=== PATIENT | female | born 1930 | race Caucasian/White ===

== ENCOUNTER 2019-04-23 10:59 | Outpatient (CLI) | payer MEDICARE | END 2019-04-23 11:00 | disposition home or self-care (01) | LOC: MADLABBHPM 10:59 | PROVIDERS: ATTEND Family Medicine | DX: R50.9 Fever, unspecified (principal) | CPT/HCPCS: 87804 ==

== ENCOUNTER 2019-05-28 19:39 | Inpatient (IN) | payer MEDICARE ==
[2019-05-28 20:45] LABS: #Basophils 0.1 thou/uL (0.0-0.2); #Eosinphils 0.5 thou/uL (0.0-0.7); #Lymphocytes 1.7 thou/uL (1.20-3.40); #Monocytes 0.6 thou/uL (0.11-0.59); #Neutrophils 8.9 thou/uL (1.40-6.50); %Eosinophils 4.3 % (0.0-10.0); %Monocytes 5.4 % (0.0-10.0); %Neutrophils 75.3 % (42.0-75.0); Hemoglobin 13.6 g/dL (12.0-16.0); Mean Corpuscular Hemoglobin 28.3 pg (27.0-31.0); Mean Corpuscular Volume 94.5 fL (78.0-98.0); Mean Platelet Volume 11.1 fL (7.4-10.4); Platelet Count 212 thou/uL (130-400); RBC Distribution Width 12.1 % (11.5-14.5); Red Blood Cell (RBC) Count 4.79 mill/uL (4.20-5.40); White Blood Cell (WBC) Count 11.9 thou/uL (4.8-10.8)
--- NOTE | 2019-05-28 20:48 | RAD ---
PORTABLE CHEST: 05/28/19 HISTORY: Syncope. COMPARISON: 01/19/11 exam. Heart size is within normal limits for portable technique. There are atherosclerotic changes of the aorta. Chronic lung changes are noted. No focal infiltrative process or signs of failure. Postoperati ve changes of the left shoulder are present. IMPRESSION: Chronic lung change. POS: [facility]
[2019-05-28 20:52] LABS: Bilirubin Small (Negative); Blood, Urine Small (Negative); Clarity Clear (Clear); Glucose, Urine (Dipstick) Negative (Negative); Leukocyte Large (Negative); Nitrite Negative (Negative); Protein, Urine (Dipstick) 30 mg/dL (Neg-Trace); Urobilinogen 0.2 mg/dL (Less than 2)
[2019-05-28 20:55] LABS: ALT (SGPT) 12 U/L (8-55); AST (SGOT) 14 U/L (5-34); Albumin 3.3 g/dL (3.4-4.8); Alkaline Phosphatase 94 U/L (40-110); Anion Gap 14 mmol/L (10-20); BUN (Urea Nitrogen) 30 mg/dL (9.8-20.1); Bilirubin, Total 0.5 mg/dL (0.2-1.2); CK (CPK) 10 U/L (29-168); Calc. Creatinine Clearance 0 mL/min (70-130); Calcium 9.5 mg/dL (7.8-10.44); Carbon Dioxide 27 mmol/L (23-31); Chloride 104 mmol/L (98-107); Estimated GFR-MDRD 72; Glucose 105 mg/dL (83-110); Lipase 27 U/L (8-78); Potassium 3.9 mmol/L (3.5-5.1); Protein, Total 6.3 g/dL (6.0-8.3); Sodium 141 mmol/L (136-145)
[2019-05-28] MEDS ORDERED: Sodium Chloride 0.9% 100 ML ONE (20:55)
[2019-05-28] MEDS ORDERED: cefTRIAXone\\ROCEPHIN 2 GM VIAL ONE (20:55)
[2019-05-28 21:00] LABS: Bacteria/HPF 1+ HPF (None Seen); Mucous/LPF 2+ LPF (<2+); RBC/HPF 0-3 HPF (0-3); WBC/HPF Greater than 50 HPF (0-3)
[2019-05-28] MEDS ORDERED: Sodium Chloride 0.9% 1,000 ML ONE (21:59)
[2019-05-28] MEDS ORDERED: Ondansetron PF 4 MG/2 ML Vial SLOW IVP PRN (23:26)
[2019-05-28] MEDS: Sodium Chloride 0.9% 1,000 ML IV SCH (23:39)
[2019-05-28] MEDS ORDERED: Donepezil HCl 10 MG TAB PO SCH (23:45)
[2019-05-28] MEDS ORDERED: Mirtazapine 15 MG TAB PO SCH (23:45)
[2019-05-28] MEDS ORDERED: Metoprolol Tartrate 25 MG TAB PO SCH (23:45)
[2019-05-28] MEDS ORDERED: Nitrofurantoin Monohyd/M-Cryst 100 MG CAP PO SCH (23:59)
[2019-05-29] MEDS: Nitrofurantoin Monohyd/M-Cryst 100 MG CAP PO SCH ×2 (08:16→20:58)
[2019-05-29] MEDS: Multivitamin W/ Minerals 1 TAB PO SCH (08:17)
[2019-05-29] MEDS: Aspirin Chewable 81 MG TAB PO SCH (08:17)
[2019-05-29] MEDS: Polyethylene Glycol 3350 17 GM Packet PO SCH (08:17)
[2019-05-29] MEDS ORDERED: Losartan 25 MG TAB PO SCH (09:00)
[2019-05-29] MEDS ORDERED: Metoprolol Tartrate 25 MG TAB PO SCH (09:00)
[2019-05-29] MEDS: Sodium Chloride 0.9% 1,000 ML IV SCH ×2 (12:30→23:26)
[2019-05-29 14:49] VITALS: BMI 16.2
[2019-05-29] MEDS ORDERED: Acetaminophen 325 MG TAB PO PRN (16:44)
[2019-05-29] MEDS: Linezolid 600 MG in Premix Bag 1 BAG IVPB SCH (17:35)
[2019-05-29] MEDS: Acetaminophen 500 MG TAB PO PRN (20:56)
[2019-05-29] MEDS: Famotidine 20 MG TAB PO SCH (20:57)
[2019-05-29] MEDS: Mirtazapine 15 MG TAB PO SCH (20:57)
[2019-05-29] MEDS: Donepezil HCl 10 MG TAB PO SCH (20:58)
--- NOTE | 2019-05-29 22:06 | HP ---
PRIMARY CARE PHYSICIAN: Rohini Aaron MD REASON FOR ADMISSION/CHIEF COMPLAINT: Generalized weakness, dehydration, and failed outpatient UTI treatment. HISTORY OF PRESENT ILLNESS: Ms. Mily Ennis is an 89-year-old female with dementia, who was admitted to [facility] in September of 2018. The patient has had reoccurring UTI for the last month and a half. She had been treated as an outpatient and is still currently on oral Macrobid twice a day due to a recent UTI that grew vancomycin resistant enterococcus on May 20, 2019. The patient's condition had progressively worsened. Per [facility] nurses, the patient had become weak, dehydrated with decreased oral intake and due to this, the patient was sent to the emergency room. In the emergency room, she was noted to be weak and her vitals were stable. The patient was ill appearing, but not septic. She was mildly dehydrated, urinalysis still shows infection and due to this, the decision was made to admit the patient for IV hydration and IV antibiotic. Upon evaluation of the patient, she complains of weakness. She denies any pain. She states she wants to feel better. No worsening of dementia currently. No nausea or vomiting. No diarrhea or any upper respiratory infection. The patient denies any chest pain, palpitations, or shortness of breath. In the emergency room, the patient was given IV Rocephin and continued on Macrobid. PAST MEDICAL HISTORY: Dementia, COPD, congestive heart failure, anxiety, emphysema, chronic pain, and failure to thrive in adult. PAST SURGICAL HISTORY: Appendectomy; breast lumpectomy, bilateral; cholecystectomy; ORIF, right wrist fracture; IR guided extended indwelling catheter in 2007; IR vertebroplasty, thoracic in 2017. FAMILY HISTORY: Noncontributory. ALLERGIES: PENICILLIN. MEDICATIONS: 1. Donepezil 5 mg at bedtime. 2. Multivitamin one tab daily. 3. Mirtazapine 7.5 at bedtime. 4. Macrobid b.i.d. to be completed on May 30. 5. MiraLAX once a day. 6. Metoprolol 12.5 b.i.d. 7. Losartan 25 once a day. 8. Aspirin 81 mg daily. 9. Tylenol 500 q.8 p.r.n. pain. 10. DuoNeb q.6 p.r.n. wheezing and shortness of breath. CODE STATUS: The patient is a full code. REVIEW OF SYSTEMS: CONSTITUTIONAL: The patient complains of generalized weakness, fatigue. EYES: Denies any blurry vision, loss of vision. ENT: Denies ear pain, sore throat, runny nose. CARDIOVASCULAR: Denies chest pain, shortness of breath, palpitations. RESPIRATORY: Denies cough or nasal congestion. GASTROINTESTINAL: Denies nausea, vomiting, diarrhea, constipation. MUSCULOSKELETAL: Complains of trouble walking. SKIN: Denies any rashes, sores, and ulcers. NEUROLOGICAL: Complains of some confusion. PHYSICAL EXAMINATION: VITAL SIGNS: Temperature 97.7, pulse 81, respirations 16, O2 saturation 98% on 2 L nasal cannula, and blood pressure 154/78. GENERAL: The patient is a pleasant female, lying in bed, chronically ill appearing, but nontoxic. The patient is alert, awake, and oriented to self. HEENT: Normocephalic and atraumatic. Oral, mucous membrane mildly dry. NECK: Supple. No JVD. No lymphadenopathy. CARDIOVASCULAR: S1 and S2. No murmurs. RESPIRATORY: Clear to auscultation bilaterally. ABDOMEN: Positive bowel sounds. Soft, nontender, nondistended. EXTREMITIES: No edema. SKIN: Bilateral lower extremity with some petechiae. NEUROLOGIC: The patient able to answer where she is at, in the hospital, but states she is in [place]. She is somewhat confused but does answer some questions. She is not able to answer appropriately. She is able to follow commands. No gross facial asymmetry. Neuro limited due to the patient's condition. ASSESSMENT: 1. Urinary tract infection with failed outpatient treatment. 2. Generalized weakness. 3. Mild dehydration. 4. Failure to thrive. 5. Gait instability. 6. Chronic obstructive pulmonary disease. 7. Hypertension. 8. Chronic congestive heart failure, ejection fraction not available. PLAN: The patient is an 89-year-old female, who is being admitted to the medical floor for urinary tract infection with failed outpatient treatment, dehydration, and generalized weakness. We will place the patient on normal saline at 75 mL/h. We will continue nitrofurantoin to complete dose on the . We will get urine culture results from [facility] and also await our urine culture here. We will place the patient on IV antibiotic in the morning based on the urine culture results. We will monitor the patient closely for any hemodynamic instability. We will repeat CBC and BMP on the . We will assist in feeding the patient as much as possible. We will add health shakes t.i.d. to diet to help with nutrition. We will consult Nutrition Services. As the patient progresses and UTI resolves, we will consult Physical Therapy to help with gait strengthening, balance and strengthening prior to discharge back to [facility]. Job ID: [id number] [facility]
[2019-05-30] MEDS: Sodium Chloride 0.9% 1,000 ML IV SCH ×3 (01:19→13:47)
[2019-05-30] MEDS: Linezolid 600 MG in Premix Bag 1 BAG IVPB SCH ×2 (04:46→17:19)
[2019-05-30 05:58] LABS: Anion Gap 13 mmol/L (10-20); BUN (Urea Nitrogen) 18 mg/dL (9.8-20.1); Calc. Creatinine Clearance 39 mL/min (70-130); Calcium 8.7 mg/dL (7.8-10.44); Carbon Dioxide 20 mmol/L (23-31); Chloride 109 mmol/L (98-107); Estimated GFR-MDRD 78; Glucose 99 mg/dL (83-110); Potassium 3.8 mmol/L (3.5-5.1); Sodium 138 mmol/L (136-145)
[2019-05-30 06:18] LABS: #Basophils 0.1 thou/uL (0.0-0.2); #Eosinphils 0.7 thou/uL (0.0-0.7); #Lymphocytes 0.7 thou/uL (1.20-3.40); #Monocytes 0.7 thou/uL (0.11-0.59); %Basophils 0.7 % (0.0-1.0); %Eosinophils 4.5 % (0.0-10.0); %Lymphocytes 4.5 % (21.0-51.0); %Monocytes 4.9 % (0.0-10.0); %Neutrophils 85.4 % (42.0-75.0); Mean Corpuscular HGB CONC 30.5 g/dL (32.0-36.0); Mean Corpuscular Volume 95.1 fL (78.0-98.0); Mean Platelet Volume 10.7 fL (7.4-10.4); Platelet Count 199 thou/uL (130-400); RBC Distribution Width 12.1 % (11.5-14.5); Red Blood Cell (RBC) Count 4.47 mill/uL (4.20-5.40); White Blood Cell (WBC) Count 15.2 thou/uL (4.8-10.8)
[2019-05-30] MEDS: Nitrofurantoin Monohyd/M-Cryst 100 MG CAP PO SCH ×2 (08:19→20:50)
[2019-05-30] MEDS: Aspirin Chewable 81 MG TAB PO SCH (08:19)
[2019-05-30] MEDS: Multivitamin W/ Minerals 1 TAB PO SCH (08:19)
[2019-05-30] MEDS: Polyethylene Glycol 3350 17 GM Packet PO SCH (08:19)
[2019-05-30] MEDS: Famotidine 20 MG TAB PO SCH ×2 (08:19→20:49)
[2019-05-30] MEDS ORDERED: Sodium Chloride 0.9% 1,000 ML BAG ONE (12:37)
[2019-05-30] MEDS: Donepezil HCl 10 MG TAB PO SCH (20:49)
[2019-05-30] MEDS: Mirtazapine 15 MG TAB PO SCH (20:50)
[2019-05-31] MEDS: Acetaminophen 500 MG TAB PO PRN (01:32)
[2019-05-31] MEDS: Sodium Chloride 0.9% 1,000 ML IV SCH (02:39)
[2019-05-31] MEDS: Linezolid 600 MG in Premix Bag 1 BAG IVPB SCH (04:30)
[2019-05-31] MEDS: Aspirin Chewable 81 MG TAB PO SCH (08:38)
[2019-05-31] MEDS: Polyethylene Glycol 3350 17 GM Packet PO SCH (08:38)
[2019-05-31] MEDS: Multivitamin W/ Minerals 1 TAB PO SCH (08:38)
[2019-05-31] MEDS: Famotidine 20 MG TAB PO SCH (08:38)
[2019-05-31 09:17] VITALS: BP 150/78; TEMP 96.6
--- NOTE | 2019-06-02 22:26 | PQF ---
Raymon MilyROHINI Varela [id number] CLINICAL DOCUMENTATION CLARIFICATION FORM: POST DISCHARGE Addendum to original discharge summary date: ____ Late entry note date: __ Date:06/02/2019 ATTN:ROHINI SORENSON Please exercise your independent, professional judgment in responding to the clarification form. Clinical indicators are provided on the bottom of this form for your review Please check appropriate box(s): [ ] Protein Calorie Malnutrition: [ ] Mild [ ] Moderate [ ] Severe [ ] Other Malnutrition (please specify) __ [ ] Underweight without malnutrition [x ] Cachexia [ ] Other diagnosis [ ] Unable to determine In addition, please specify: Present on Admission (POA): [ ] Yes [ ] No [ ] Unable to determine CLINICAL INDICATORS - SIGNS / SYMPTOMS / LABS Patient had become weak , dehydration with decreased oral intake -Documented in H&P on 05/28 by Rohini Sorenson MD Failure to thrive-Documented in H&P on 05/28 by Rohini Sorenson MD BMI-16.0-Documented in FNS Assessment Severe fat and muscle loss, Likely significant weight loss and inadequate energy intake , but unable to quantify-Documented in FNS Assessment Albumin-3.3-Documented in Laboratory RISK FACTORS Failure to thrive-Documented in H&P on 05/28 by Rohini Sorenson MD TREATMENT: We will assist in feeding the patient as much as possible. We will add health shakes t.i.d to diet to help with nutrition. We will consult Nutrition services --Documented in H&P on 05/28 by Rohini Sorenson MD General /Healthful diet supp comm beverage -Documented in FNS Assessment Continue regular NDD1-pureed , [place] thick liquids diet,Provide mighty shakes TID w/ meals -Documented in FNS Moderate Malnutrition (in acute illness) Energy Intake: <75% of estimated energy requirement for > 7 days Weight Loss: 1-2%/1 week; 5%/ 1 month; 7.5%/3 months Other: mild body fat loss; mild muscle mass loss; mild fluid accumulation; Severe Malnutrition (in acute illness) Energy Intake: < 50% of estimated energy requirement for > 5 days Weight Loss: >1-2%/1 week; >5%/1 month; >7.5%/3 months Other: moderate body fat loss; moderate muscle mass loss; moderate- severe fluid accumulation; 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 Moderate Malnutrition (in chronic illness) Energy Intake: <75% of estimated energy requirement for >1 month Weight Loss: 5%/1 month; 7.5%/3 months; 10%/6 months; 20%/1 year Other: mild body fat loss; mild muscle mass loss; mild fluid accumulation Severe Malnutrition (in chronic illness) Energy Intake: <75% of estimated energy requirement for >1 month Weight Loss: >5%/1 month; >7.5%/3 months; >10%/6 months; >20%/1 year Other: severe body fat loss; severe muscle mass loss; severe fluid accumulation ; 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 All Rights Reserved [email or web address]
== END 2019-05-31 11:12 | disposition swing bed (61) | DRG 690 ==
LOC: MADERS 19:39 → MADMS 21:25
PROVIDERS: ADMIT Family Medicine; ATTEND Family Medicine
DX: N39.0 Urinary tract infection, site not specified (principal); Z68.1 Body mass index [BMI] 19.9 or less, adult; R64 Cachexia; E86.0 Dehydration; R26.9 Unspecified abnormalities of gait and mobility; I11.0 Hypertensive heart disease with heart failure; I50.9 Heart failure, unspecified; F41.9 Anxiety disorder, unspecified; J43.9 Emphysema, unspecified; F03.90 Unspecified dementia, unspecified severity, without behavioral disturbance, psychotic disturbance, mood disturbance, and anxiety; Z90.49 Acquired absence of other specified parts of digestive tract; Z88.0 Allergy status to penicillin; Z98.890 Other specified postprocedural states
CPT/HCPCS: 36415; 51701; 71045; 80048; 80053; 81003; 81015; 82550; 83605; 83690; 84484; 85025; 87040; 87086; 93005; 96361; 96365; A4353; J0696; J2020; J3490; J7050

== ENCOUNTER 2019-05-31 07:59 | Inpatient (IN) | payer MEDICARE ==
[2019-05-31] MEDS ORDERED: Acetaminophen 325 MG TAB PO PRN (14:03)
[2019-05-31] MEDS ORDERED: Loperamide HCl 2 MG CAP PO PRN (14:03)
[2019-05-31] MEDS ORDERED: Ondansetron ODT 4 MG TAB PO PRN (14:03)
[2019-05-31] MEDS ORDERED: SODIUM CHLORIDE IV SCH (14:15)
[2019-05-31] MEDS ORDERED: LINEZOLID IV SCH (14:15)
[2019-05-31] MEDS ORDERED: [UNRECOGNIZED DRUG - OTHER] IV SCH (14:15)
[2019-05-31] MEDS: Linezolid 600 MG in Premix Bag 1 BAG IVPB SCH (17:08)
[2019-05-31] MEDS ORDERED: Sodium Chloride 0.9% 1,000 ML IV SCH (19:30)
[2019-05-31] MEDS: Ipratropium Bromide 2.5 ml Neb NEB SCH (20:12)
[2019-05-31] MEDS: Famotidine 20 MG TAB PO SCH (20:13)
[2019-05-31] MEDS: Donepezil HCl 10 MG TAB PO SCH (20:13)
[2019-05-31] MEDS: Mirtazapine 15 MG TAB PO SCH (20:14)
[2019-05-31] MEDS: Acetaminophen 500 MG TAB PO SCH (22:31)
[2019-06-01] MEDS: Ipratropium Bromide 2.5 ml Neb NEB SCH ×4 (01:10→20:01)
[2019-06-01] MEDS: Acetaminophen 500 MG TAB PO SCH ×3 (05:20→21:31)
[2019-06-01] MEDS: Linezolid 600 MG in Premix Bag 1 BAG IVPB SCH ×2 (05:20→16:55)
[2019-06-01 05:44] LABS: #Basophils 0.1 thou/uL (0.0-0.2); #Eosinphils 0.9 thou/uL (0.0-0.7); #Lymphocytes 1.4 thou/uL (1.20-3.40); #Monocytes 0.4 thou/uL (0.11-0.59); #Neutrophils 3.7 thou/uL (1.40-6.50); %Basophils 1.2 % (0.0-1.0); %Eosinophils 14.2 % (0.0-10.0); %Lymphocytes 20.8 % (21.0-51.0); %Monocytes 6.5 % (0.0-10.0); %Neutrophils 57.2 % (42.0-75.0); Hemoglobin 11.3 g/dL (12.0-16.0); Mean Corpuscular HGB CONC 30.8 g/dL (32.0-36.0); Mean Corpuscular Hemoglobin 28.9 pg (27.0-31.0); Mean Corpuscular Volume 93.9 fL (78.0-98.0); Mean Platelet Volume 10.7 fL (7.4-10.4); Platelet Count 215 thou/uL (130-400); Red Blood Cell (RBC) Count 3.91 mill/uL (4.20-5.40); White Blood Cell (WBC) Count 6.5 thou/uL (4.8-10.8)
[2019-06-01 05:54] LABS: Anion Gap 8 mmol/L (10-20); BUN (Urea Nitrogen) 12 mg/dL (9.8-20.1); Calc. Creatinine Clearance 43 mL/min (70-130); Calcium 8.2 mg/dL (7.8-10.44); Carbon Dioxide 26 mmol/L (23-31); Chloride 109 mmol/L (98-107); Estimated GFR-MDRD 86; Glucose 75 mg/dL (83-110); Potassium 3.4 mmol/L (3.5-5.1); Sodium 140 mmol/L (136-145)
[2019-06-01] MEDS: Multivitamin W/ Minerals 1 TAB PO SCH (09:30)
[2019-06-01] MEDS: Famotidine 20 MG TAB PO SCH ×2 (09:31→20:01)
[2019-06-01] MEDS: Aspirin 81 mg Enteric Coated Tablet PO SCH (09:31)
[2019-06-01] MEDS: Donepezil HCl 10 MG TAB PO SCH (20:01)
[2019-06-01] MEDS: Mirtazapine 15 MG TAB PO SCH (20:02)
[2019-06-02] MEDS: Ipratropium Bromide 2.5 ml Neb NEB SCH ×4 (00:48→18:17)
[2019-06-02] MEDS: Linezolid 600 MG in Premix Bag 1 BAG IVPB SCH ×2 (05:12→17:29)
[2019-06-02] MEDS: Acetaminophen 500 MG TAB PO SCH ×3 (05:12→22:02)
[2019-06-02] MEDS: Famotidine 20 MG TAB PO SCH ×2 (08:49→20:36)
[2019-06-02] MEDS: Aspirin 81 mg Enteric Coated Tablet PO SCH (08:49)
[2019-06-02] MEDS: Multivitamin W/ Minerals 1 TAB PO SCH (08:49)
[2019-06-02] MEDS: Donepezil HCl 10 MG TAB PO SCH (20:36)
[2019-06-02] MEDS: Mirtazapine 15 MG TAB PO SCH (20:36)
[2019-06-03] MEDS: Ipratropium Bromide 2.5 ml Neb NEB SCH ×4 (01:46→20:38)
[2019-06-03] MEDS: Acetaminophen 500 MG TAB PO SCH ×3 (05:20→22:25)
[2019-06-03] MEDS: Linezolid 600 MG in Premix Bag 1 BAG IVPB SCH (05:20)
[2019-06-03] MEDS: Famotidine 20 MG TAB PO SCH ×2 (08:11→20:35)
[2019-06-03] MEDS: Megestrol Acetate 400 MG/10 ML UDCUP PO SCH (08:11)
[2019-06-03] MEDS: Multivitamin W/ Minerals 1 TAB PO SCH (08:11)
[2019-06-03] MEDS: Aspirin 81 mg Enteric Coated Tablet PO SCH (08:11)
[2019-06-03] MEDS: Mirtazapine 15 MG TAB PO SCH (20:35)
[2019-06-03] MEDS: Donepezil HCl 10 MG TAB PO SCH (20:37)
[2019-06-04] MEDS: Ipratropium Bromide 2.5 ml Neb NEB SCH ×4 (02:18→19:53)
[2019-06-04] MEDS: Acetaminophen 500 MG TAB PO SCH ×3 (05:37→22:03)
[2019-06-04] MEDS: Famotidine 20 MG TAB PO SCH ×2 (08:22→20:10)
[2019-06-04] MEDS: Aspirin 81 mg Enteric Coated Tablet PO SCH (08:22)
[2019-06-04] MEDS: Megestrol Acetate 400 MG/10 ML UDCUP PO SCH (08:22)
[2019-06-04] MEDS: Multivitamin W/ Minerals 1 TAB PO SCH (08:23)
[2019-06-04] MEDS: Mirtazapine 15 MG TAB PO SCH (20:09)
[2019-06-04] MEDS: Donepezil HCl 10 MG TAB PO SCH (20:10)
[2019-06-05] MEDS: Ipratropium Bromide 2.5 ml Neb NEB SCH ×3 (01:38→12:48)
[2019-06-05] MEDS: Acetaminophen 500 MG TAB PO SCH ×3 (05:50→21:58)
[2019-06-05] MEDS: Multivitamin W/ Minerals 1 TAB PO SCH (09:02)
[2019-06-05] MEDS: Aspirin 81 mg Enteric Coated Tablet PO SCH (09:02)
[2019-06-05] MEDS: Famotidine 20 MG TAB PO SCH ×2 (09:02→21:48)
[2019-06-05] MEDS: Megestrol Acetate 400 MG/10 ML UDCUP PO SCH (09:02)
[2019-06-05 15:05] VITALS: BMI 16.5
[2019-06-05] MEDS: Mirtazapine 15 MG TAB PO SCH (21:48)
[2019-06-05] MEDS: Donepezil HCl 10 MG TAB PO SCH (21:48)
[2019-06-06] MEDS: Ipratropium Bromide 2.5 ml Neb NEB SCH ×5 (01:09→13:03)
[2019-06-06] MEDS: Acetaminophen 500 MG TAB PO SCH ×4 (06:04→21:28)
[2019-06-06] MEDS: Aspirin 81 mg Enteric Coated Tablet PO SCH (09:00)
[2019-06-06] MEDS: Megestrol Acetate 400 MG/10 ML UDCUP PO SCH (09:00)
[2019-06-06] MEDS: Famotidine 20 MG TAB PO SCH ×2 (09:00→21:24)
[2019-06-06] MEDS: Multivitamin W/ Minerals 1 TAB PO SCH (09:00)
[2019-06-06] MEDS ORDERED: Loperamide HCl 2 MG CAP PO PRN (15:24)
[2019-06-06] MEDS ORDERED: Loperamide HCl 2 MG CAP PO SCH (15:30)
[2019-06-06] MEDS: Donepezil HCl 10 MG TAB PO SCH (21:23)
[2019-06-06] MEDS: Mirtazapine 15 MG TAB PO SCH (21:24)
[2019-06-07] MEDS: Ipratropium Bromide 2.5 ml Neb NEB SCH ×4 (01:11→17:57)
[2019-06-07] MEDS: Acetaminophen 500 MG TAB PO SCH ×3 (05:13→20:37)
[2019-06-07] MEDS: Aspirin 81 mg Enteric Coated Tablet PO SCH (08:08)
[2019-06-07] MEDS: Megestrol Acetate 400 MG/10 ML UDCUP PO SCH (08:08)
[2019-06-07] MEDS: Famotidine 20 MG TAB PO SCH ×2 (08:08→20:38)
[2019-06-07] MEDS: Multivitamin W/ Minerals 1 TAB PO SCH (08:08)
[2019-06-07] MEDS: Mirtazapine 15 MG TAB PO SCH (20:37)
[2019-06-07] MEDS: Donepezil HCl 10 MG TAB PO SCH (20:38)
[2019-06-08] MEDS: Ipratropium Bromide 2.5 ml Neb NEB SCH ×4 (00:15→18:15)
[2019-06-08] MEDS: Acetaminophen 500 MG TAB PO SCH ×3 (05:39→21:11)
[2019-06-08] MEDS: Famotidine 20 MG TAB PO SCH ×2 (08:55→21:12)
[2019-06-08] MEDS: Megestrol Acetate 400 MG/10 ML UDCUP PO SCH (08:55)
[2019-06-08] MEDS: Aspirin 81 mg Enteric Coated Tablet PO SCH (08:56)
[2019-06-08] MEDS: Multivitamin W/ Minerals 1 TAB PO SCH (08:56)
[2019-06-08] MEDS: Donepezil HCl 10 MG TAB PO SCH (21:11)
[2019-06-08] MEDS: Mirtazapine 15 MG TAB PO SCH (21:12)
[2019-06-09] MEDS: Ipratropium Bromide 2.5 ml Neb NEB SCH ×4 (01:28→18:33)
[2019-06-09] MEDS: Acetaminophen 500 MG TAB PO SCH ×3 (05:34→21:12)
[2019-06-09] MEDS: Aspirin 81 mg Enteric Coated Tablet PO SCH (09:34)
[2019-06-09] MEDS: Multivitamin W/ Minerals 1 TAB PO SCH (09:34)
[2019-06-09] MEDS: Megestrol Acetate 400 MG/10 ML UDCUP PO SCH (09:34)
[2019-06-09] MEDS: Famotidine 20 MG TAB PO SCH ×2 (09:34→20:38)
[2019-06-09] MEDS: Donepezil HCl 10 MG TAB PO SCH (20:37)
[2019-06-09] MEDS: Mirtazapine 15 MG TAB PO SCH (20:38)
[2019-06-10] MEDS: Ipratropium Bromide 2.5 ml Neb NEB SCH ×4 (01:00→18:18)
[2019-06-10] MEDS: Acetaminophen 500 MG TAB PO SCH ×3 (05:40→21:30)
[2019-06-10] MEDS: Famotidine 20 MG TAB PO SCH ×2 (08:52→21:30)
[2019-06-10] MEDS: Multivitamin W/ Minerals 1 TAB PO SCH (08:52)
[2019-06-10] MEDS: Aspirin 81 mg Enteric Coated Tablet PO SCH (08:52)
[2019-06-10] MEDS: Megestrol Acetate 400 MG/10 ML UDCUP PO SCH (08:54)
[2019-06-10] MEDS: Mirtazapine 15 MG TAB PO SCH (21:30)
[2019-06-10] MEDS: Donepezil HCl 10 MG TAB PO SCH (21:30)
[2019-06-11] MEDS: Ipratropium Bromide 2.5 ml Neb NEB SCH ×3 (00:10→11:51)
[2019-06-11] MEDS: Acetaminophen 500 MG TAB PO SCH ×2 (05:36→13:07)
[2019-06-11] MEDS: Aspirin 81 mg Enteric Coated Tablet PO SCH (08:24)
[2019-06-11] MEDS: Multivitamin W/ Minerals 1 TAB PO SCH (08:24)
[2019-06-11] MEDS: Famotidine 20 MG TAB PO SCH (08:24)
[2019-06-11] MEDS: Megestrol Acetate 400 MG/10 ML UDCUP PO SCH (08:25)
[2019-06-11 09:09] VITALS: BP 137/70; TEMP 97.7
--- NOTE | 2019-06-12 07:11 | DIS ---
DATE OF ADMISSION: 05/31/2019 DATE OF DISCHARGE: 06/11/2019 PRIMARY CARE PHYSICIAN: Rohini Aaron MD DISCHARGE DISPOSITION: Back to [facility]. DISCHARGE MEDICATIONS: 1. Tylenol 650 q.4 p.r.n. 2. Aspirin 81 mg daily. 3. Donepezil 5 mg at bedtime. 4. Pepcid 20 b.i.d. 5. Flovent nebs q.6 hours. 6. Multivitamin one tab daily. 7. Megace 400 daily. 8. Remeron 7.5 at bedtime. 9. Lamisil topical daily. 10. Zofran 4 mg q.6 p.r.n. DISCHARGE DIAGNOSES: 1. Physical deconditioning, improving. 2. Failure to thrive, stable. 3. Hypertension, resolved. 4. Vancomycin-resistant enterococcus urinary tract infection with failed outpatient treatment, resolved. 5. Advanced dementia. 6. Gait instability. DISCHARGE INSTRUCTIONS: The patient to start PT, OT services in [facility]. Repeat CBC and BMP in one week. Fall precautions. Assist with meals Ensure t.i.d. BRIEF HOSPITAL COURSE: Ms. Mily Ennis is an 89-year-old female with a medical history of advanced dementia, who resides in [facility]. The patient had multiple reoccurring urinary tract infections for the past month and a half and she had been treated with multiple antibiotics, but she continuously grew VRE and UTI and the patient continued to become weak, dehydrated with decreased oral intake. The decision was made to admit the patient for IV antibiotics. She was on Macrobid twice a day that was started on May 20, but this was not helping. The patient was seen in the emergency room, where she was noted to be dehydrated with urinalysis showing signs of infection again, so she was admitted. She was started on IV Rocephin and continued on the oral Macrobid. During hospitalization, the patient was noted to be very weak also, she was started on IV fluids gently and this helped. The patient's antibiotic was switched from Rocephin to linezolid, which she was able to take b.i.d. IV for 5 days. After that, received a urine culture in house, came back and that showed no urinary tract infection, so the antibiotic was discontinued. The patient was able to return to baseline and due to the deconditioning, she was seen by physical and occupational therapist and the patient was transferred to the [facility] for rehab and completion of IV antibiotics. The patient was able to participate in physical therapy, but due to dementia, this limited progress a lot. Per physical therapist, the patient improved enough strength, but did not meet any of the goals. The patient during hospitalization had failure to thrive and she was started on Megace. She was started on Ensure t.i.d. and MightyShakes with meals, which the patient tolerated sometimes and sometimes she was adamant she was not going to eat. Family was involved at care throughout hospitalization and on June 11, 2019, the patient was subsequently discharged back to [facility] to continue therapy. During hospitalization, the patient initially had leukocytosis and this improved, and by discharge, white count was 6.5. She was able to gain a total of 6 pounds during hospitalization. The patient's discharge weight was 104 pounds and 12.8 ounces. Discharge vital signs, temperature 97.7, pulse 68, respirations 18, O2 saturation 96% on room air, and blood pressure 137/70. Job ID: [id number]
== END 2019-06-11 14:00 | DRG 948 ==
LOC: MADMS 11:19
PROVIDERS: ADMIT Family Medicine; ATTEND Family Medicine
DX: R53.81 Other malaise (principal); N39.0 Urinary tract infection, site not specified; Z16.21 Resistance to vancomycin; Z68.1 Body mass index [BMI] 19.9 or less, adult; R62.7 Adult failure to thrive; I10 Essential (primary) hypertension; B95.2 Enterococcus as the cause of diseases classified elsewhere; F03.90 Unspecified dementia, unspecified severity, without behavioral disturbance, psychotic disturbance, mood disturbance, and anxiety; R26.81 Unsteadiness on feet
CPT/HCPCS: 80048; 85025; 94640; J2020; J7050

== ENCOUNTER 2019-09-21 19:38 | Emergency (ER) | payer MEDICARE ==
[2019-09-21 20:16] LABS: Hemoglobin 14.9 g/dL (12.0-16.0); Mean Corpuscular Hemoglobin 29.3 pg (27.0-31.0); Mean Corpuscular Volume 97.7 fL (78.0-98.0); Mean Platelet Volume 13.3 fL (7.4-10.4); Platelet Count 243 thou/uL (130-400); RBC Distribution Width 13.4 % (11.5-14.5); Red Blood Cell (RBC) Count 5.07 mill/uL (4.20-5.40); White Blood Cell (WBC) Count 13.5 thou/uL (4.8-10.8)
[2019-09-21 20:21] LABS: Bilirubin Small (Negative); Blood, Urine Moderate (Negative); Clarity Turbid (Clear); Glucose, Urine (Dipstick) Negative (Negative); Leukocyte Large (Negative); Nitrite Negative (Negative); Protein, Urine (Dipstick) 30 mg/dL (Neg-Trace); Urobilinogen 0.2 mg/dL (Less than 2)
[2019-09-21] MEDS ORDERED: Sodium Chloride 0.9% 1,000 ML ONE ×2 (20:23→21:13)
[2019-09-21 20:26] LABS: Mucous/LPF 3+ LPF (<2+); RBC/HPF Greater than 50 HPF (0-3); Squamous Epithelial 0-3 HPF (0-3); WBC/HPF Greater than 50 HPF (0-3)
[2019-09-21 20:27] LABS: Bacteria/HPF 2+ HPF (None Seen)
[2019-09-21 20:29] LABS: #Basophils 0.1 thou/uL (0.0-0.2); #Lymphocytes 1.9 thou/uL (1.20-3.40); #Monocytes 0.8 thou/uL (0.11-0.59); #Neutrophils 10.7 thou/uL (1.40-6.50); %Basophils 0.5 % (0.0-1.0); %Eosinophils 0.3 % (0.0-10.0); %Lymphocytes 14.1 % (21.0-51.0); %Monocytes 5.7 % (0.0-10.0); %Neutrophils 79.3 % (42.0-75.0); Hypochromia SLIGHT = 6-15 cells (100X) (0-5/hpf); Large Platelets SLIGHT; MDiff Complete? YES; Platelet Morphology Comment Appears Adequate
--- NOTE | 2019-09-21 20:33 | RAD ---
RADIOGRAPH CHEST 1 VIEW: DATE: 09/21/2019 HISTORY: 81-year-old female with cough FINDINGS: The thoracic aorta is tortuous and ectatic. There is no evidence of airspace density, pulmonary edema , or pneumothorax. The lateral costophrenic angles are not effaced. IMPRESSION: 1) No acute pulmonary findings. 2) ectasia of thoracic aorta.
[2019-09-21] MEDS ORDERED: cefTRIAXone\\ROCEPHIN 2 GM VIAL ONE (20:39)
[2019-09-21] MEDS ORDERED: Sodium Chloride 0.9% 100 ML ONE (20:40)
[2019-09-21 21:07] LABS: ALT (SGPT) 56 U/L (8-55); AST (SGOT) 44 U/L (5-34); Albumin 3.3 g/dL (3.4-4.8); Alkaline Phosphatase 85 U/L (40-110); Anion Gap 17 mmol/L (10-20); BUN (Urea Nitrogen) 40 mg/dL (9.8-20.1); Bilirubin, Total 0.8 mg/dL (0.2-1.2); Calc. Creatinine Clearance 0 mL/min (70-130); Calcium 9.7 mg/dL (7.8-10.44); Carbon Dioxide 25 mmol/L (23-31); Chloride 129 mmol/L (98-107); Estimated GFR-MDRD 48; Globulin 3.4 g/dL (2.4-3.5); Glucose 98 mg/dL (83-110); Potassium 3.9 mmol/L (3.5-5.1); Protein, Total 6.7 g/dL (6.0-8.3); Sodium 167 mmol/L (136-145)
== END 2019-09-21 22:10 | disposition short-term general hospital (02) ==
LOC: MADERS 19:38
DX: N30.90 Cystitis, unspecified without hematuria (principal); E86.0 Dehydration; E87.0 Hyperosmolality and hypernatremia; I50.9 Heart failure, unspecified; I10 Essential (primary) hypertension; J44.9 Chronic obstructive pulmonary disease, unspecified; A52.17 General paresis; Z79.82 Long term (current) use of aspirin; Z79.899 Other long term (current) drug therapy
CPT/HCPCS: 51701; 71045; 80053; 81003; 81015; 83605; 85025; 87040; 87077; 87086; 87149; 87186; 93005; 96361; 96365; J0696; J3490; J7050